=== PATIENT | female | born 2000 | race Caucasian/White ===

== ENCOUNTER 2021-05-29 10:04 | Emergency (ER) | payer BC ==
[2021-05-29] MEDS ORDERED: Acetaminophen/HYDROcodone 325-5 MG Tab PO STA (10:45)
[2021-05-29] MEDS ORDERED: Ketorolac 30 MG/ML SDV IM STA (10:45)
== END 2021-05-29 10:56 | disposition left against medical advice (07) ==
LOC: FB.ED 10:04
DX: G43.909 Migraine, unspecified, not intractable, without status migrainosus (principal); E66.9 Obesity, unspecified; Z68.37 Body mass index [BMI] 37.0-37.9, adult; Z88.2 Allergy status to sulfonamides
CPT/HCPCS: 99283-25